=== PATIENT | female | born 1950 | race Caucasian/White ===

== ENCOUNTER 2022-12-22 17:14 | Inpatient (IN) | payer MEDICARE, BC ==
[~2022-12-22] VITALS: Ht 165.1 cm; Wt 105.2 kg
[2022-12-22 20:00] VITALS: BP 123/58
[2022-12-22] MEDS ORDERED: PANT40TA49 PO (22:17)
[2022-12-22] MEDS ORDERED: LEVO175T7 PO (22:17)
[2022-12-22] MEDS ORDERED: MIDO5TAB5 PO (22:17)
[2022-12-22] MEDS ORDERED: VIT1TABL46 PO (22:17)
[2022-12-22] MEDS ORDERED: LINA5TAB PO (22:17)
[2022-12-22] MEDS ORDERED: SENN-291 PO (22:17)
[2022-12-22] MEDS ORDERED: ALLO100T PO (22:21)
[2022-12-22] MEDS: REMEDY ESSENTIAL ZINC PASTE 113 GM TOP SCH (22:28)
[2022-12-22] MEDS ORDERED: SENNOSIDES/DOCUSATE SODIUM TABLET PO PRN (23:15)
[2022-12-23 04:00] VITALS: BP 119/62
[2022-12-23] MEDS: LEVOTHYROXINE SODIUM 175 MCG TABLET PO SCH (07:40)
[2022-12-23] MEDS: PANTOPRAZOLE SODIUM 40 MG TABLET.DR PO SCH (07:40)
[2022-12-23 07:56] VITALS: BP 100/33
[2022-12-23] MEDS: ALLOPURINOL 100 MG TABLET PO SCH (08:51)
[2022-12-23] MEDS: MULTIVITAMINS,THERAPEUTIC TABLET PO SCH (08:51)
[2022-12-23] MEDS: LINAGLIPTIN 5 MG TABLET PO SCH (08:51)
[2022-12-23] MEDS: REMEDY ESSENTIAL ZINC PASTE 113 GM TOP SCH ×2 (08:52→21:31)
[2022-12-23] MEDS: MIDODRINE HCL 5 MG TABLET PO SCH ×3 (08:52→17:39)
[2022-12-23] MEDS ORDERED: DEXTROSE 50% 50 ML DISP.SYRIN IV PRN (12:00)
[2022-12-23] MEDS ORDERED: BLOOD SUGAR DIAGNOSTIC 1 EACH STRIP VI SCH (12:00)
[2022-12-23 15:42] VITALS: BP 87/33
[2022-12-23 16:08] VITALS: BP 115/35
[2022-12-23] MEDS: BLOOD SUGAR DIAGNOSTIC 1 EACH STRIP VI SCH ×2 (16:30→21:29)
[2022-12-23] MEDS: PROTEIN SUPPLEMENT (PROSTAT) 30 ML LIQUID PO SCH (17:41)
[2022-12-23 20:38] VITALS: BP 109/36
[2022-12-23] MEDS: INSULIN REGULAR, HUMAN 300 UNIT/3 ML VIAL SQ PRN (21:30)
[2022-12-24] VITALS (13 sets, daily range): BP systolic 103–128; BP diastolic 32–49
[2022-12-24 06:21] LABS: MEAN CORPUSCULAR HEMOGLOBIN 33.5 uug (24.7-32.8); MEAN CORPUSCULAR VOLUME 99.6 fL (75.5-95.3); PLATELET COUNT (AUTO) 100 K/uL (179-408)
[2022-12-24 06:46] LABS: CARBON DIOXIDE 22 mmol/L (21-32); CHLORIDE 107 mmol/L (98-107); CREATININE 1.9 mg/dL (0.6-1.3); GLUCOSE 109 mg/dL (74-106); MAGNESIUM 1.7 mg/dL (1.8-2.4); PHOSPHOROUS 2.8 mg/dL (2.5-4.9); POTASSIUM 3.6 mmol/L (3.5-5.1); UREA NITROGEN, BLOOD 25 mg/dL (7-18)
[2022-12-24] MEDS: PANTOPRAZOLE SODIUM 40 MG TABLET.DR PO SCH (07:03)
[2022-12-24] MEDS: LEVOTHYROXINE SODIUM 175 MCG TABLET PO SCH (07:03)
[2022-12-24] MEDS: BLOOD SUGAR DIAGNOSTIC 1 EACH STRIP VI SCH ×4 (07:19→20:34)
[2022-12-24 07:48] LABS: HEMATOCRIT 17.5 % (31.2-41.9)
[2022-12-24] MEDS: ALLOPURINOL 100 MG TABLET PO SCH (08:06)
[2022-12-24] MEDS: MULTIVITAMINS,THERAPEUTIC TABLET PO SCH (08:07)
[2022-12-24] MEDS: MIDODRINE HCL 5 MG TABLET PO SCH ×3 (08:07→16:55)
[2022-12-24] MEDS: REMEDY ESSENTIAL ZINC PASTE 113 GM TOP SCH ×2 (08:07→20:33)
[2022-12-24] MEDS: LINAGLIPTIN 5 MG TABLET PO SCH (08:07)
[2022-12-24] MEDS: GLUCERNA SHAKE 237 ML CAN PO SCH (08:14)
[2022-12-24] MEDS: PROTEIN SUPPLEMENT (PROSTAT) 30 ML LIQUID PO SCH ×2 (08:15→16:56)
[2022-12-24] MEDS ORDERED: MAGNESIUM OXIDE 400 MG TABLET PO ONE (10:00)
[2022-12-24 10:30] LABS: BAND % (MANUAL) 6 % (0-10); BASOPHILS % (MANUAL) 0 % (0-2); EOSINOPHILS % (MANUAL) 0 % (0-8); LYMPHOCYTES % (MANUAL) 27 % (20-40); MONOCYTES % (MANUAL) 2 % (2-10); NEUTROPHILS % (MANUAL) 59 % (42-75); REACTIVE LYMPHOCYTES 5 % (0-0)
[2022-12-24 10:31] LABS: BLASTS, MANUAL % 0 % (0-0); METAMYELOCYTES % 1 % (0-1); MYELOCYTES % 0 % (0-0); PROMYELOCYTES % 0 %
[2022-12-24] MEDS: INSULIN REGULAR, HUMAN 300 UNIT/3 ML VIAL SQ PRN (11:43)
[2022-12-25 04:12] VITALS: BP 116/50
[2022-12-25 06:02] LABS: MEAN CORPUSCULAR HEMOGLOBIN 33.9 uug (24.7-32.8); MEAN CORPUSCULAR VOLUME 98.3 fL (75.5-95.3); PLATELET COUNT (AUTO) 82 K/uL (179-408)
[2022-12-25 06:08] LABS: CARBON DIOXIDE 22 mmol/L (21-32); CHLORIDE 106 mmol/L (98-107); CREATININE 1.9 mg/dL (0.6-1.3); GLUCOSE 111 mg/dL (74-106); MAGNESIUM 1.7 mg/dL (1.8-2.4); PHOSPHOROUS 2.9 mg/dL (2.5-4.9); POTASSIUM 3.8 mmol/L (3.5-5.1); UREA NITROGEN, BLOOD 28 mg/dL (7-18)
[2022-12-25 06:20] LABS: HEMATOCRIT 20.8 % (31.2-41.9)
[2022-12-25] MEDS: LEVOTHYROXINE SODIUM 175 MCG TABLET PO SCH (06:30)
[2022-12-25] MEDS: PANTOPRAZOLE SODIUM 40 MG TABLET.DR PO SCH (06:30)
[2022-12-25] MEDS: BLOOD SUGAR DIAGNOSTIC 1 EACH STRIP VI SCH ×4 (06:32→20:32)
[2022-12-25 08:00] VITALS: BP 120/37
[2022-12-25] MEDS: ALLOPURINOL 100 MG TABLET PO SCH (08:43)
[2022-12-25] MEDS: LINAGLIPTIN 5 MG TABLET PO SCH (08:43)
[2022-12-25] MEDS: MULTIVITAMINS,THERAPEUTIC TABLET PO SCH (08:43)
[2022-12-25] MEDS: GLUCERNA SHAKE 237 ML CAN PO SCH (08:46)
[2022-12-25] MEDS: MIDODRINE HCL 5 MG TABLET PO SCH ×3 (08:46→17:00)
[2022-12-25] MEDS: REMEDY ESSENTIAL ZINC PASTE 113 GM TOP SCH ×2 (08:47→20:28)
[2022-12-25] MEDS: PROTEIN SUPPLEMENT (PROSTAT) 30 ML LIQUID PO SCH ×2 (08:47→17:01)
[2022-12-25 10:32] LABS: BAND % (MANUAL) 3 % (0-10); LYMPHOCYTES % (MANUAL) 11 % (20-40)
[2022-12-25 10:33] LABS: BASOPHILS % (MANUAL) 0 % (0-2); EOSINOPHILS % (MANUAL) 3 % (0-8); METAMYELOCYTES % 0 % (0-1); MONOCYTES % (MANUAL) 5 % (2-10); MYELOCYTES % 0 % (0-0); PROMYELOCYTES % 0 %; REACTIVE LYMPHOCYTES 8 % (0-0)
[2022-12-25 10:34] LABS: NEUTROPHILS % (MANUAL) 70 % (42-75)
[2022-12-25] MEDS ORDERED: MAGNESIUM OXIDE 400 MG TABLET PO ONE (11:00)
[2022-12-25 11:53] LABS: IRON, SERUM 46 ug/dL (50-175)
[2022-12-25] MEDS: INSULIN REGULAR, HUMAN 300 UNIT/3 ML VIAL SQ PRN (11:56)
[2022-12-25 15:59] VITALS: BP 124/42
[2022-12-25 20:19] VITALS: BP 122/44
[2022-12-26] VITALS (8 sets, daily range): BP systolic 110–164; BP diastolic 28–52
[2022-12-26] MEDS: BLOOD SUGAR DIAGNOSTIC 1 EACH STRIP VI SCH ×4 (06:32→20:36)
[2022-12-26] MEDS: PANTOPRAZOLE SODIUM 40 MG TABLET.DR PO SCH ×2 (06:32→17:19)
[2022-12-26] MEDS: LEVOTHYROXINE SODIUM 175 MCG TABLET PO SCH (06:32)
[2022-12-26 07:35] LABS: CARBON DIOXIDE 21 mmol/L (21-32); CHLORIDE 108 mmol/L (98-107); GLUCOSE 114 mg/dL (74-106); MAGNESIUM 1.8 mg/dL (1.8-2.4); PHOSPHOROUS 3.1 mg/dL (2.5-4.9); UREA NITROGEN, BLOOD 32 mg/dL (7-18)
[2022-12-26 07:50] LABS: MEAN CORPUSCULAR HEMOGLOBIN 33.7 uug (24.7-32.8); MEAN CORPUSCULAR VOLUME 99.4 fL (75.5-95.3); PLATELET COUNT (AUTO) 95 K/uL (179-408)
[2022-12-26 08:11] LABS: HEMATOCRIT 18.4 % (31.2-41.9)
[2022-12-26 09:00] LABS: BAND % (MANUAL) 2 % (0-10); EOSINOPHILS % (MANUAL) 8 % (0-8); LYMPHOCYTES % (MANUAL) 8 % (20-40); MONOCYTES % (MANUAL) 2 % (2-10); MYELOCYTES % 2 % (0-0); NEUTROPHILS % (MANUAL) 78 % (42-75)
[2022-12-26] MEDS: PROTEIN SUPPLEMENT (PROSTAT) 30 ML LIQUID PO SCH ×2 (09:46→17:24)
[2022-12-26] MEDS: MULTIVITAMINS,THERAPEUTIC TABLET PO SCH (09:46)
[2022-12-26] MEDS: REMEDY ESSENTIAL ZINC PASTE 113 GM TOP SCH ×2 (09:46→20:37)
[2022-12-26] MEDS: ALLOPURINOL 100 MG TABLET PO SCH (09:47)
[2022-12-26] MEDS: LINAGLIPTIN 5 MG TABLET PO SCH (09:47)
[2022-12-26] MEDS: GLUCERNA SHAKE 237 ML CAN PO SCH (09:48)
[2022-12-26] MEDS: MIDODRINE HCL 5 MG TABLET PO SCH ×3 (09:48→17:23)
[2022-12-26] MEDS ORDERED: GOLYTELY 4000 ML BOTTLE PO ONE (11:45)
[2022-12-26] MEDS: INSULIN REGULAR, HUMAN 300 UNIT/3 ML VIAL SQ PRN (12:23)
[2022-12-26] MEDS: RIFAXIMIN 550 MG TABLET PO SCH ×2 (12:29→20:37)
[2022-12-26] MEDS: SOD FERRIC GLUC COMPLX/SUCROSE 125 MG in IV NORMAL SALINE 100 ML IV SCH (15:09)
[2022-12-27 05:02] VITALS: BP 120/44
[2022-12-27] MEDS: LEVOTHYROXINE SODIUM 175 MCG TABLET PO SCH (06:23)
[2022-12-27] MEDS: PANTOPRAZOLE SODIUM 40 MG TABLET.DR PO SCH ×2 (06:23→17:07)
[2022-12-27 06:27] LABS: HEMATOCRIT 21.8 % (31.2-41.9); MEAN CORPUSCULAR HEMOGLOBIN 33.3 uug (24.7-32.8); MEAN CORPUSCULAR VOLUME 98.8 fL (75.5-95.3); PLATELET COUNT (AUTO) 85 K/uL (179-408)
[2022-12-27] MEDS: BLOOD SUGAR DIAGNOSTIC 1 EACH STRIP VI SCH ×4 (06:45→21:47)
[2022-12-27 06:54] LABS: ALANINE AMINOTRANSFERASE 32 U/L (14-59); ALKALINE PHOSPHATASE 142 U/L (50-136); ASPARTATE AMINOTRANSFERASE 55 U/L (15-37); BILIRUBIN,TOTAL 1.3 mg/dL (0.2-1.0); CARBON DIOXIDE 23 mmol/L (21-32); CHLORIDE 106 mmol/L (98-107); CREATININE 1.9 mg/dL (0.6-1.3); GLUCOSE 114 mg/dL (74-106); MAGNESIUM 1.8 mg/dL (1.8-2.4); PHOSPHOROUS 2.9 mg/dL (2.5-4.9); POTASSIUM 3.8 mmol/L (3.5-5.1); TOTAL PROTEIN, SERUM 4.6 g/dL (6.4-8.2); UREA NITROGEN, BLOOD 32 mg/dL (7-18)
[2022-12-27 07:32] VITALS: BP 120/40
[2022-12-27] MEDS: RIFAXIMIN 550 MG TABLET PO SCH ×2 (08:26→20:27)
[2022-12-27] MEDS: ALLOPURINOL 100 MG TABLET PO SCH (08:26)
[2022-12-27] MEDS: LINAGLIPTIN 5 MG TABLET PO SCH (08:26)
[2022-12-27] MEDS: GLUCERNA SHAKE 237 ML CAN PO SCH (08:33)
[2022-12-27] MEDS: PROTEIN SUPPLEMENT (PROSTAT) 30 ML LIQUID PO SCH ×2 (08:33→17:08)
[2022-12-27] MEDS: MIDODRINE HCL 5 MG TABLET PO SCH ×3 (08:34→17:07)
[2022-12-27] MEDS: MULTIVITAMINS,THERAPEUTIC TABLET PO SCH (08:34)
[2022-12-27] MEDS: REMEDY ESSENTIAL ZINC PASTE 113 GM TOP SCH ×2 (08:34→20:27)
[2022-12-27 10:51] LABS: BAND % (MANUAL) 2 % (0-10); LYMPHOCYTES % (MANUAL) 9 % (20-40); MONOCYTES % (MANUAL) 12 % (2-10); NEUTROPHILS % (MANUAL) 77 % (42-75)
[2022-12-27] MEDS: INSULIN REGULAR, HUMAN 300 UNIT/3 ML VIAL SQ PRN (11:43)
[2022-12-27] MEDS: SOD FERRIC GLUC COMPLX/SUCROSE 125 MG in IV NORMAL SALINE 100 ML IV SCH (13:25)
[2022-12-27 16:00] VITALS: BP 126/46
[2022-12-27 19:58] VITALS: BP 112/44
[2022-12-28 04:20] VITALS: BP 100/38
[2022-12-28 05:23] LABS: HEMATOCRIT 22.6 % (31.2-41.9); MEAN CORPUSCULAR HEMOGLOBIN 33.8 uug (24.7-32.8); MEAN CORPUSCULAR VOLUME 100.2 fL (75.5-95.3); PLATELET COUNT (AUTO) 85 K/uL (179-408)
[2022-12-28 06:19] LABS: CARBON DIOXIDE 23 mmol/L (21-32); CHLORIDE 105 mmol/L (98-107); CREATININE 1.8 mg/dL (0.6-1.3); GLUCOSE 109 mg/dL (74-106); PHOSPHOROUS 3.4 mg/dL (2.5-4.9); POTASSIUM 3.7 mmol/L (3.5-5.1); UREA NITROGEN, BLOOD 32 mg/dL (7-18)
[2022-12-28] MEDS: PANTOPRAZOLE SODIUM 40 MG TABLET.DR PO SCH ×2 (06:23→17:24)
[2022-12-28] MEDS: LEVOTHYROXINE SODIUM 175 MCG TABLET PO SCH ×2 (06:23→08:23)
[2022-12-28] MEDS: BLOOD SUGAR DIAGNOSTIC 1 EACH STRIP VI SCH ×4 (06:30→21:17)
[2022-12-28 07:41] VITALS: BP 104/37
[2022-12-28] MEDS: MIDODRINE HCL 5 MG TABLET PO SCH ×3 (08:23→17:24)
[2022-12-28] MEDS: LINAGLIPTIN 5 MG TABLET PO SCH (08:23)
[2022-12-28] MEDS: ALLOPURINOL 100 MG TABLET PO SCH (08:23)
[2022-12-28] MEDS: MULTIVITAMINS,THERAPEUTIC TABLET PO SCH (08:23)
[2022-12-28] MEDS: REMEDY ESSENTIAL ZINC PASTE 113 GM TOP SCH ×2 (08:25→20:58)
[2022-12-28] MEDS: PROTEIN SUPPLEMENT (PROSTAT) 30 ML LIQUID PO SCH ×2 (08:25→17:27)
[2022-12-28] MEDS: GLUCERNA SHAKE 237 ML CAN PO SCH (08:26)
[2022-12-28] MEDS: RIFAXIMIN 550 MG TABLET PO SCH ×2 (08:57→20:58)
[2022-12-28] MEDS: INSULIN REGULAR, HUMAN 300 UNIT/3 ML VIAL SQ PRN (12:14)
[2022-12-28] MEDS: SOD FERRIC GLUC COMPLX/SUCROSE 125 MG in IV NORMAL SALINE 100 ML IV SCH (14:11)
[2022-12-28 16:00] VITALS: BP 134/51
[2022-12-28 20:06] VITALS: BP 130/37
[2022-12-29 05:43] VITALS: BP 121/40
[2022-12-29] MEDS: PANTOPRAZOLE SODIUM 40 MG TABLET.DR PO SCH ×2 (06:35→16:51)
[2022-12-29] MEDS: BLOOD SUGAR DIAGNOSTIC 1 EACH STRIP VI SCH ×2 (06:43→11:34)
[2022-12-29 06:47] LABS: HEMATOCRIT 22.6 % (31.2-41.9); MEAN CORPUSCULAR VOLUME 100.6 fL (75.5-95.3); PLATELET COUNT (AUTO) 110 K/uL (179-408)
[2022-12-29 07:07] LABS: THYROID STIMULATING HORMONE 6.794 mIU/mL (0.358-3.740)
[2022-12-29 07:26] LABS: CARBON DIOXIDE 22 mmol/L (21-32); CHLORIDE 105 mmol/L (98-107); CREATININE 1.8 mg/dL (0.6-1.3); GLUCOSE 114 mg/dL (74-106); MAGNESIUM 1.9 mg/dL (1.8-2.4); PHOSPHOROUS 3.4 mg/dL (2.5-4.9); POTASSIUM 3.7 mmol/L (3.5-5.1); UREA NITROGEN, BLOOD 32 mg/dL (7-18)
[2022-12-29 07:55] LABS: ALANINE AMINOTRANSFERASE 39 U/L (14-59); ALKALINE PHOSPHATASE 173 U/L (50-136); ASPARTATE AMINOTRANSFERASE 65 U/L (15-37); BILIRUBIN,TOTAL 0.9 mg/dL (0.2-1.0); CARBON DIOXIDE 23 mmol/L (21-32); CHLORIDE 105 mmol/L (98-107); CHOLESTEROL 124 mg/dL (<200); CREATININE 1.8 mg/dL (0.6-1.3); GLUCOSE 114 mg/dL (74-106); HDL CHOLESTEROL 24 mg/dL (40-60); POTASSIUM 3.7 mmol/L (3.5-5.1); TRIGLYCERIDES 87 MG/DL (30-150); UREA NITROGEN, BLOOD 32 mg/dL (7-18)
[2022-12-29 08:00] VITALS: BP 146/49
[2022-12-29 08:43] LABS: TOTAL PROTEIN, SERUM 4.9 g/dL (6.4-8.2)
[2022-12-29] MEDS: MULTIVITAMINS,THERAPEUTIC TABLET PO SCH (08:50)
[2022-12-29] MEDS: LEVOTHYROXINE SODIUM 175 MCG TABLET PO SCH (08:50)
[2022-12-29] MEDS: LINAGLIPTIN 5 MG TABLET PO SCH (08:51)
[2022-12-29] MEDS: ALLOPURINOL 100 MG TABLET PO SCH (08:51)
[2022-12-29] MEDS: RIFAXIMIN 550 MG TABLET PO SCH ×2 (08:52→20:14)
[2022-12-29] MEDS: MIDODRINE HCL 5 MG TABLET PO SCH (08:53)
[2022-12-29] MEDS: REMEDY ESSENTIAL ZINC PASTE 113 GM TOP SCH ×2 (08:54→20:14)
[2022-12-29] MEDS: PROTEIN SUPPLEMENT (PROSTAT) 30 ML LIQUID PO SCH ×2 (08:54→16:52)
[2022-12-29] MEDS: GLUCERNA SHAKE 237 ML CAN PO SCH (08:54)
[2022-12-29] MEDS: INSULIN REGULAR, HUMAN 300 UNIT/3 ML VIAL SQ PRN (11:36)
[2022-12-29] MEDS: SOD FERRIC GLUC COMPLX/SUCROSE 125 MG in IV NORMAL SALINE 100 ML IV SCH (14:06)
[2022-12-29 16:00] VITALS: BP 151/56
[2022-12-29 20:00] VITALS: BP 117/55
[2022-12-30 04:41] VITALS: BP 110/61
[2022-12-30] MEDS: PANTOPRAZOLE SODIUM 40 MG TABLET.DR PO SCH ×2 (05:49→17:04)
[2022-12-30] MEDS: LEVOTHYROXINE SODIUM 175 MCG TABLET PO SCH (05:49)
[2022-12-30 06:54] LABS: HEMATOCRIT 21.9 % (31.2-41.9); MEAN CORPUSCULAR HEMOGLOBIN 34.1 uug (24.7-32.8); MEAN CORPUSCULAR VOLUME 101.6 fL (75.5-95.3); PLATELET COUNT (AUTO) 107 K/uL (179-408)
[2022-12-30 07:33] LABS: CARBON DIOXIDE 25 mmol/L (21-32); CHLORIDE 105 mmol/L (98-107); CREATININE 1.9 mg/dL (0.6-1.3); GLUCOSE 111 mg/dL (74-106); MAGNESIUM 1.9 mg/dL (1.8-2.4); PHOSPHOROUS 3.5 mg/dL (2.5-4.9); POTASSIUM 3.7 mmol/L (3.5-5.1); UREA NITROGEN, BLOOD 33 mg/dL (7-18)
[2022-12-30 08:06] VITALS: BP 165/50
[2022-12-30] MEDS: MULTIVITAMINS,THERAPEUTIC TABLET PO SCH (08:28)
[2022-12-30] MEDS: PROTEIN SUPPLEMENT (PROSTAT) 30 ML LIQUID PO SCH ×2 (08:29→17:06)
[2022-12-30] MEDS: LINAGLIPTIN 5 MG TABLET PO SCH (08:29)
[2022-12-30] MEDS: GLUCERNA SHAKE 237 ML CAN PO SCH (08:29)
[2022-12-30] MEDS: ALLOPURINOL 100 MG TABLET PO SCH (08:29)
[2022-12-30] MEDS: REMEDY ESSENTIAL ZINC PASTE 113 GM TOP SCH ×2 (08:29→20:42)
[2022-12-30] MEDS: RIFAXIMIN 550 MG TABLET PO SCH ×2 (08:30→20:43)
[2022-12-30 10:38] LABS: BAND % (MANUAL) 2 % (0-10); EOSINOPHILS % (MANUAL) 1 % (0-8); LYMPHOCYTES % (MANUAL) 10 % (20-40); MONOCYTES % (MANUAL) 14 % (2-10); NEUTROPHILS % (MANUAL) 73 % (42-75)
[2022-12-30 10:39] LABS: BASOPHILS % (MANUAL) 0 % (0-2); BLASTS, MANUAL % 0 % (0-0); METAMYELOCYTES % 0 % (0-1); MYELOCYTES % 0 % (0-0); PROMYELOCYTES % 0 %; REACTIVE LYMPHOCYTES 0 % (0-0)
[2022-12-30] MEDS: SOD FERRIC GLUC COMPLX/SUCROSE 125 MG in IV NORMAL SALINE 100 ML IV SCH (14:10)
[2022-12-30 15:48] VITALS: BP 107/59
[2022-12-30 20:00] VITALS: BP 105/53
[2022-12-31 04:00] VITALS: BP 107/44
[2022-12-31] MEDS: LEVOTHYROXINE SODIUM 175 MCG TABLET PO SCH (06:08)
[2022-12-31] MEDS: PANTOPRAZOLE SODIUM 40 MG TABLET.DR PO SCH ×2 (06:08→17:00)
[2022-12-31 08:07] VITALS: BP 114/48
[2022-12-31] MEDS: ALLOPURINOL 100 MG TABLET PO SCH (09:14)
[2022-12-31] MEDS: GLUCERNA SHAKE 237 ML CAN PO SCH (09:14)
[2022-12-31] MEDS: MULTIVITAMINS,THERAPEUTIC TABLET PO SCH (09:14)
[2022-12-31] MEDS: LINAGLIPTIN 5 MG TABLET PO SCH (09:14)
[2022-12-31] MEDS: RIFAXIMIN 550 MG TABLET PO SCH ×2 (09:14→21:14)
[2022-12-31] MEDS: PROTEIN SUPPLEMENT (PROSTAT) 30 ML LIQUID PO SCH ×2 (09:14→17:00)
[2022-12-31] MEDS: REMEDY ESSENTIAL ZINC PASTE 113 GM TOP SCH ×2 (09:15→21:14)
[2022-12-31 12:27] LABS: *BILIRUBIN,URIN NEGATIVE (NEGATIVE); *BLOOD, URINE 2+ (NEGATIVE); *CLARITY,URINE CLEAR (CLEAR); *COLOR,URINE YELLOW (YELLOW); *KETONES,URINE NEGATIVE (NEGATIVE); *UROBILINOGEN,URINE 0.2 E.U./dl (NORMAL); LEUKOCYTE ESTERASE ,URINE NEGATIVE (NEGATIVE); NITRITE, URINE NEGATIVE (NEGATIVE); PH,URINE 5.5 (5.0-8.0); UGLUCOSE NEGATIVE (NEGATIVE)
[2022-12-31 12:40] LABS: BACTERIA,URINE NONE SEEN /HPF (NONE SEEN); RBC,URINE 0-3 /HPF (0-3); WBC,URINE 0-3 /HPF (0-3)
[2022-12-31 12:41] LABS: CALCIUM CARBONATE CRYSTALS,UR NONE SEEN /HPF (NONE SEEN); CALCIUM OXALATE CRYSTALS,UR MANY /HPF (NONE SEEN); CALCIUM PHOSPHATE CRYSTALS,UR NONE SEEN /HPF (NONE SEEN); COARSE GRANULAR CASTS,URINE NONE SEEN /LPF; CYSTINE CRYSTALS,URINE NONE SEEN /HPF (NONE SEEN); FATTY CASTS,URINE NONE SEEN /LPF (NONE SEEN); RED BLOOD CELL CASTS,URINE NONE SEEN /LPF (NONE SEEN); SQUAMOUS EPITHELIAL CELL,UR FEW /HPF (NONE SEEN); TRICHOMONAS,URINE NONE SEEN /HPF (NONE SEEN); TRIPLE PHOSPHATE CRYSTAL,UR NONE SEEN /HPF (NONE SEEN); TYROSINE CRYSTAL,URINE NONE SEEN /HPF (NONE SEEN); URIC ACID CRYSTALS,URINE NONE SEEN /HPF (NONE SEEN); URINE AMORPHOUS PHOSPHATES NONE SEEN /HPF; URINE AMORPHOUS URATE NONE SEEN /HPF; WAXY CASTS,URINE NONE SEEN /LPF (NONE SEEN); YEAST,URINE BUDDING YEAST /HPF (NONE SEEN)
[2022-12-31 12:42] LABS: MUCUS,URINE NONE SEEN /LPF (0-FEW); SPERM,URINE NONE SEEN /HPF (NONE SEEN)
[2022-12-31 15:50] VITALS: BP 111/46
[2022-12-31 20:32] VITALS: BP 109/39
[2023-01-01] VITALS (7 sets, daily range): BP systolic 98–115; BP diastolic 33–53
[2023-01-01] MEDS: LEVOTHYROXINE SODIUM 175 MCG TABLET PO SCH (06:26)
[2023-01-01] MEDS: PANTOPRAZOLE SODIUM 40 MG TABLET.DR PO SCH ×2 (06:26→17:06)
[2023-01-01 07:46] LABS: MEAN CORPUSCULAR HEMOGLOBIN 35.2 uug (24.7-32.8); MEAN CORPUSCULAR VOLUME 103.2 fL (75.5-95.3); PLATELET COUNT (AUTO) 111 K/uL (179-408)
[2023-01-01 08:22] LABS: HEMATOCRIT 18.3 % (31.2-41.9)
[2023-01-01] MEDS: LINAGLIPTIN 5 MG TABLET PO SCH (08:43)
[2023-01-01] MEDS: ALLOPURINOL 100 MG TABLET PO SCH (08:43)
[2023-01-01] MEDS: RIFAXIMIN 550 MG TABLET PO SCH ×2 (08:43→21:46)
[2023-01-01] MEDS: PROTEIN SUPPLEMENT (PROSTAT) 30 ML LIQUID PO SCH ×2 (08:44→17:06)
[2023-01-01] MEDS: MULTIVITAMINS,THERAPEUTIC TABLET PO SCH (08:44)
[2023-01-01] MEDS: GLUCERNA SHAKE 237 ML CAN PO SCH (08:44)
[2023-01-01] MEDS: REMEDY ESSENTIAL ZINC PASTE 113 GM TOP SCH ×2 (08:45→21:46)
[2023-01-01 12:52] LABS: NEUTROPHILS % (MANUAL) 69 % (42-75)
[2023-01-01 12:53] LABS: BAND % (MANUAL) 7 % (0-10); BASOPHILS % (MANUAL) 0 % (0-2); BLASTS, MANUAL % 0 % (0-0); EOSINOPHILS % (MANUAL) 4 % (0-8); LYMPHOCYTES % (MANUAL) 11 % (20-40); METAMYELOCYTES % 0 % (0-1); MONOCYTES % (MANUAL) 6 % (2-10); MYELOCYTES % 0 % (0-0); PROMYELOCYTES % 0 %; REACTIVE LYMPHOCYTES 0 % (0-0)
[2023-01-02 04:25] VITALS: BP 116/48
[2023-01-02] MEDS: PANTOPRAZOLE SODIUM 40 MG TABLET.DR PO SCH ×2 (06:04→17:46)
[2023-01-02 08:00] VITALS: BP 115/44
[2023-01-02] MEDS: LEVOTHYROXINE SODIUM 175 MCG TABLET PO SCH (09:37)
[2023-01-02] MEDS: MULTIVITAMINS,THERAPEUTIC TABLET PO SCH (09:37)
[2023-01-02] MEDS: LINAGLIPTIN 5 MG TABLET PO SCH (09:37)
[2023-01-02] MEDS: ALLOPURINOL 100 MG TABLET PO SCH (09:37)
[2023-01-02] MEDS: GLUCERNA SHAKE 237 ML CAN PO SCH (09:38)
[2023-01-02] MEDS: REMEDY ESSENTIAL ZINC PASTE 113 GM TOP SCH ×2 (09:39→21:33)
[2023-01-02] MEDS: PROTEIN SUPPLEMENT (PROSTAT) 30 ML LIQUID PO SCH ×2 (09:39→17:46)
[2023-01-02] MEDS: RIFAXIMIN 550 MG TABLET PO SCH ×2 (11:21→21:33)
[2023-01-02] MEDS ORDERED: HYDROXYZINE PAMOATE 25 MG CAPSULE PO PRN (12:00)
[2023-01-02 15:35] VITALS: BP 106/48
[2023-01-02 20:00] VITALS: BP 105/43
[2023-01-03] MEDS ORDERED: PIPERACILLIN/TAZO 2.25 G in IV DEXTROSE 5% 50 ML IV SCH ×2
[2023-01-03] MEDS ORDERED: PIPERACILLIN/TAZOBACTAM/D5W 100 ML ONE (01:03)
[2023-01-03] MEDS: PIPERACILLIN/TAZO 2.25 G in IV DEXTROSE 5% 50 ML IV SCH ×2 (01:11→05:42)
[2023-01-03 04:00] VITALS: BP 108/42
[2023-01-03 06:49] LABS: HEMATOCRIT 22.4 % (31.2-41.9); MEAN CORPUSCULAR HEMOGLOBIN 35.9 uug (24.7-32.8); MEAN CORPUSCULAR VOLUME 103.4 fL (75.5-95.3); PLATELET COUNT (AUTO) 111 K/uL (179-408)
[2023-01-03 07:34] LABS: ALANINE AMINOTRANSFERASE 32 U/L (14-59); ALKALINE PHOSPHATASE 164 U/L (50-136); ASPARTATE AMINOTRANSFERASE 53 U/L (15-37); BILIRUBIN,TOTAL 0.7 mg/dL (0.2-1.0); CARBON DIOXIDE 23 mmol/L (21-32); CHLORIDE 108 mmol/L (98-107); CREATININE 2.3 mg/dL (0.6-1.3); GLUCOSE 111 mg/dL (74-106); PHOSPHOROUS 3.4 mg/dL (2.5-4.9); POTASSIUM 4.4 mmol/L (3.5-5.1); TOTAL PROTEIN, SERUM 4.9 g/dL (6.4-8.2); UREA NITROGEN, BLOOD 37 mg/dL (7-18)
[2023-01-03 08:00] VITALS: BP 102/44
[2023-01-03] MEDS: LINAGLIPTIN 5 MG TABLET PO SCH (08:56)
[2023-01-03] MEDS: ALLOPURINOL 100 MG TABLET PO SCH (08:56)
[2023-01-03] MEDS: MULTIVITAMINS,THERAPEUTIC TABLET PO SCH (08:56)
[2023-01-03] MEDS: LEVOTHYROXINE SODIUM 175 MCG TABLET PO SCH (08:56)
[2023-01-03] MEDS: PROTEIN SUPPLEMENT (PROSTAT) 30 ML LIQUID PO SCH ×2 (08:57→16:53)
[2023-01-03] MEDS: GLUCERNA SHAKE 237 ML CAN PO SCH (08:57)
[2023-01-03] MEDS: RIFAXIMIN 550 MG TABLET PO SCH ×2 (09:00→20:53)
[2023-01-03] MEDS: REMEDY ESSENTIAL ZINC PASTE 113 GM TOP SCH ×2 (09:02→20:53)
[2023-01-03] MEDS: PANTOPRAZOLE SODIUM 40 MG TABLET.DR PO SCH ×2 (09:02→16:52)
[2023-01-03] MEDS: PIPERACILLIN SODIUM/TAZOBACTAM 3.375 G in IV DEXTROSE 5% 100 ML IV SCH ×2 (12:18→23:11)
[2023-01-03 16:00] VITALS: BP 115/40
[2023-01-03 20:09] VITALS: BP 107/44
[2023-01-04 04:20] VITALS: BP 103/43
[2023-01-04] MEDS: LEVOTHYROXINE SODIUM 175 MCG TABLET PO SCH (05:59)
[2023-01-04] MEDS: PANTOPRAZOLE SODIUM 40 MG TABLET.DR PO SCH ×2 (05:59→16:57)
[2023-01-04 07:32] VITALS: BP 105/43
[2023-01-04] MEDS: MULTIVITAMINS,THERAPEUTIC TABLET PO SCH (08:25)
[2023-01-04] MEDS: RIFAXIMIN 550 MG TABLET PO SCH ×2 (08:25→20:54)
[2023-01-04] MEDS: GLUCERNA SHAKE 237 ML CAN PO SCH (08:25)
[2023-01-04] MEDS: LINAGLIPTIN 5 MG TABLET PO SCH (08:25)
[2023-01-04] MEDS: ALLOPURINOL 100 MG TABLET PO SCH (08:25)
[2023-01-04] MEDS: REMEDY ESSENTIAL ZINC PASTE 113 GM TOP SCH ×2 (08:26→20:54)
[2023-01-04] MEDS: PROTEIN SUPPLEMENT (PROSTAT) 30 ML LIQUID PO SCH ×2 (08:26→16:58)
[2023-01-04] MEDS: PIPERACILLIN SODIUM/TAZOBACTAM 3.375 G in IV DEXTROSE 5% 100 ML IV SCH ×2 (12:09→23:52)
[2023-01-04 15:53] VITALS: BP 158/79
[2023-01-04 20:00] VITALS: BP 112/45
[2023-01-05 04:00] VITALS: BP 105/37
[2023-01-05] MEDS: PANTOPRAZOLE SODIUM 40 MG TABLET.DR PO SCH ×2 (06:09→16:29)
[2023-01-05] MEDS: LEVOTHYROXINE SODIUM 175 MCG TABLET PO SCH (06:31)
[2023-01-05 07:08] LABS: CARBON DIOXIDE 25 mmol/L (21-32); CHLORIDE 107 mmol/L (98-107); CREATININE 2.3 mg/dL (0.6-1.3); GLUCOSE 98 mg/dL (74-106); POTASSIUM 3.9 mmol/L (3.5-5.1); UREA NITROGEN, BLOOD 34 mg/dL (7-18)
[2023-01-05 07:31] VITALS: BP 98/41
[2023-01-05] MEDS: GLUCERNA SHAKE 237 ML CAN PO SCH (08:50)
[2023-01-05] MEDS: LINAGLIPTIN 5 MG TABLET PO SCH (08:51)
[2023-01-05] MEDS: RIFAXIMIN 550 MG TABLET PO SCH ×2 (08:51→21:23)
[2023-01-05] MEDS: ALLOPURINOL 100 MG TABLET PO SCH (08:51)
[2023-01-05] MEDS: REMEDY ESSENTIAL ZINC PASTE 113 GM TOP SCH ×2 (08:51→21:22)
[2023-01-05] MEDS: MULTIVITAMINS,THERAPEUTIC TABLET PO SCH (08:51)
[2023-01-05] MEDS: PROTEIN SUPPLEMENT (PROSTAT) 30 ML LIQUID PO SCH ×2 (08:52→17:01)
[2023-01-05] MEDS: PIPERACILLIN SODIUM/TAZOBACTAM 3.375 G in IV DEXTROSE 5% 100 ML IV SCH (11:18)
[2023-01-05 16:47] VITALS: BP 118/43
[2023-01-05 20:26] VITALS: BP 150/43
[2023-01-06] MEDS: PIPERACILLIN SODIUM/TAZOBACTAM 3.375 G in IV DEXTROSE 5% 100 ML IV SCH ×3 (00:04→18:21)
[2023-01-06 05:32] VITALS: BP 123/43
[2023-01-06] MEDS: LEVOTHYROXINE SODIUM 175 MCG TABLET PO SCH (06:18)
[2023-01-06] MEDS: PANTOPRAZOLE SODIUM 40 MG TABLET.DR PO SCH ×2 (06:18→17:42)
[2023-01-06 08:00] VITALS: BP 106/73
[2023-01-06] MEDS: ALLOPURINOL 100 MG TABLET PO SCH (09:50)
[2023-01-06] MEDS: LINAGLIPTIN 5 MG TABLET PO SCH (09:50)
[2023-01-06] MEDS: MULTIVITAMINS,THERAPEUTIC TABLET PO SCH (09:50)
[2023-01-06] MEDS: RIFAXIMIN 550 MG TABLET PO SCH ×2 (09:50→21:13)
[2023-01-06] MEDS: GLUCERNA SHAKE 237 ML CAN PO SCH (09:51)
[2023-01-06] MEDS: PROTEIN SUPPLEMENT (PROSTAT) 30 ML LIQUID PO SCH ×2 (09:52→17:43)
[2023-01-06] MEDS: REMEDY ESSENTIAL ZINC PASTE 113 GM TOP SCH ×2 (09:53→21:26)
[2023-01-06 13:30] LABS: *BILIRUBIN,URIN NEGATIVE (NEGATIVE); *BLOOD, URINE NEGATIVE (NEGATIVE); *CLARITY,URINE CLEAR (CLEAR); *COLOR,URINE YELLOW (YELLOW); *KETONES,URINE NEGATIVE (NEGATIVE); *UROBILINOGEN,URINE 0.2 E.U./dl (NORMAL); LEUKOCYTE ESTERASE ,URINE NEGATIVE (NEGATIVE); NITRITE, URINE NEGATIVE (NEGATIVE); PH,URINE 5.5 (5.0-8.0); UGLUCOSE NEGATIVE (NEGATIVE)
[2023-01-06 13:35] LABS: *URINE TOTAL PROTEIN RANDOM 34.3 mg/dL (<150/24HR)
[2023-01-06 15:25] VITALS: BP 102/41
[2023-01-06 20:00] VITALS: BP_SYST 140; BP_SYST 150; BP_DIAS 45; BP_DIAS 48
[2023-01-07] VITALS (10 sets, daily range): BP systolic 99–129; BP diastolic 40–53
[2023-01-07] MEDS: PIPERACILLIN SODIUM/TAZOBACTAM 3.375 G in IV DEXTROSE 5% 100 ML IV SCH ×3 (01:01→17:05)
[2023-01-07] MEDS: PANTOPRAZOLE SODIUM 40 MG TABLET.DR PO SCH ×2 (06:18→17:05)
[2023-01-07 06:33] LABS: ALANINE AMINOTRANSFERASE 33 U/L (14-59); ALKALINE PHOSPHATASE 152 U/L (50-136); ASPARTATE AMINOTRANSFERASE 46 U/L (15-37); BILIRUBIN,TOTAL 0.7 mg/dL (0.2-1.0); CARBON DIOXIDE 24 mmol/L (21-32); CHLORIDE 108 mmol/L (98-107); CREATININE 2.5 mg/dL (0.6-1.3); GLUCOSE 110 mg/dL (74-106); MAGNESIUM 2.1 mg/dL (1.8-2.4); PHOSPHOROUS 3.7 mg/dL (2.5-4.9); POTASSIUM 3.8 mmol/L (3.5-5.1); TOTAL PROTEIN, SERUM 4.6 g/dL (6.4-8.2); UREA NITROGEN, BLOOD 37 mg/dL (7-18)
[2023-01-07 06:45] LABS: CREATINE KINASE, TOTAL < 7 U/L (26-192)
[2023-01-07 07:06] LABS: MEAN CORPUSCULAR HEMOGLOBIN 35.5 uug (24.7-32.8); MEAN CORPUSCULAR VOLUME 108.2 fL (75.5-95.3); PLATELET COUNT (AUTO) 95 K/uL (179-408)
[2023-01-07] MEDS: LEVOTHYROXINE SODIUM 175 MCG TABLET PO SCH (07:34)
[2023-01-07 07:49] LABS: HEMATOCRIT 20.3 % (31.2-41.9)
[2023-01-07] MEDS: MULTIVITAMINS,THERAPEUTIC TABLET PO SCH (08:54)
[2023-01-07] MEDS: LINAGLIPTIN 5 MG TABLET PO SCH (08:58)
[2023-01-07] MEDS: ALLOPURINOL 100 MG TABLET PO SCH (08:59)
[2023-01-07] MEDS: RIFAXIMIN 550 MG TABLET PO SCH ×2 (09:02→20:37)
[2023-01-07] MEDS: GLUCERNA SHAKE 237 ML CAN PO SCH (09:03)
[2023-01-07] MEDS: REMEDY ESSENTIAL ZINC PASTE 113 GM TOP SCH ×2 (09:03→20:38)
[2023-01-07] MEDS: PROTEIN SUPPLEMENT (PROSTAT) 30 ML LIQUID PO SCH ×2 (09:03→17:06)
[2023-01-07 17:58] LABS: EOSINOPHILS % (MANUAL) 6 % (0-8); LYMPHOCYTES % (MANUAL) 9 % (20-40); MONOCYTES % (MANUAL) 6 % (2-10); NEUTROPHILS % (MANUAL) 79 % (42-75)
[2023-01-07 18:56] LABS: *OCCULT BLOOD STOOL POSITIVE (NEGATIVE)
[2023-01-08] MEDS: PIPERACILLIN SODIUM/TAZOBACTAM 3.375 G in IV DEXTROSE 5% 100 ML IV SCH ×2 (00:50→09:08)
[2023-01-08 04:30] VITALS: BP 113/39
[2023-01-08] MEDS: PANTOPRAZOLE SODIUM 40 MG TABLET.DR PO SCH (06:19)
[2023-01-08] MEDS: LEVOTHYROXINE SODIUM 175 MCG TABLET PO SCH (06:33)
[2023-01-08 07:17] LABS: MEAN CORPUSCULAR HEMOGLOBIN 34.5 uug (24.7-32.8); MEAN CORPUSCULAR VOLUME 103.4 fL (75.5-95.3); PLATELET COUNT (AUTO) 91 K/uL (179-408)
[2023-01-08 07:32] VITALS: BP 100/45
[2023-01-08] MEDS: MULTIVITAMINS,THERAPEUTIC TABLET PO SCH (09:05)
[2023-01-08] MEDS: LINAGLIPTIN 5 MG TABLET PO SCH (09:05)
[2023-01-08] MEDS: RIFAXIMIN 550 MG TABLET PO SCH (09:05)
[2023-01-08] MEDS: REMEDY ESSENTIAL ZINC PASTE 113 GM TOP SCH (09:06)
[2023-01-08] MEDS: GLUCERNA SHAKE 237 ML CAN PO SCH (09:07)
[2023-01-08] MEDS: PROTEIN SUPPLEMENT (PROSTAT) 30 ML LIQUID PO SCH (09:07)
[2023-01-08] MEDS: ALLOPURINOL 100 MG TABLET PO SCH (10:09)
[2023-01-08 12:20] LABS: BAND % (MANUAL) 5 % (0-10); BASOPHILS % (MANUAL) 0 % (0-2); BLASTS, MANUAL % 0 % (0-0); EOSINOPHILS % (MANUAL) 3 % (0-8); LYMPHOCYTES % (MANUAL) 13 % (20-40); METAMYELOCYTES % 0 % (0-1); MONOCYTES % (MANUAL) 13 % (2-10); MYELOCYTES % 0 % (0-0); NEUTROPHILS % (MANUAL) 62 % (42-75); PROMYELOCYTES % 0 %; REACTIVE LYMPHOCYTES 4 % (0-0)
[2023-01-10 13:07] LABS: A/G RATIO 0.9 (0.7-1.7); ALBUMIN 1.9 g/dL (2.9-4.4); ALPHA-1-GLOBULIN 0.3 g/dL (0.0-0.4); ALPHA-2-GLOBULIN 0.4 g/dL (0.4-1.0); BETA GLOBULIN 0.6 g/dL (0.7-1.3); GAMMA GLOBULIN 1.1 g/dL (0.4-1.8); GLOBULIN, TOTAL 2.2 g/dL (2.2-3.9); M-SPIKE Not Observed g/dL (Not Observed)
== END 2023-01-08 16:15 | DRG 689 ==
PROVIDERS: ADMIT Physical Medicine & Rehabilitation Pain Medicine; ATTEND Physical Medicine & Rehabilitation Pain Medicine
PROC: 05HY33Z Insertion of Infusion Device into Upper Vein, Percutaneous Approach (ICD-10-PCS; principal; 2022-12-24)
PROC: 30233N1 Transfusion of Nonautologous Red Blood Cells into Peripheral Vein, Percutaneous Approach (ICD-10-PCS; 2022-12-24)
DX: N39.0 Urinary tract infection, site not specified (principal); E43 Unspecified severe protein-calorie malnutrition; N17.0 Acute kidney failure with tubular necrosis; J69.0 Pneumonitis due to inhalation of food and vomit; G92.8 Other toxic encephalopathy; D68.59 Other primary thrombophilia; R18.8 Other ascites; R78.81 Bacteremia; K76.6 Portal hypertension; D53.9 Nutritional anemia, unspecified; E03.9 Hypothyroidism, unspecified; E11.9 Type 2 diabetes mellitus without complications; K74.69 Other cirrhosis of liver; K76.82 Hepatic encephalopathy; K31.89 Other diseases of stomach and duodenum; Z74.01 Bed confinement status; F06.4 Anxiety disorder due to known physiological condition; B96.20 Unspecified Escherichia coli [E. coli] as the cause of diseases classified elsewhere; D63.8 Anemia in other chronic diseases classified elsewhere; D69.6 Thrombocytopenia, unspecified; E88.09 Other disorders of plasma-protein metabolism, not elsewhere classified; Z68.36 Body mass index [BMI] 36.0-36.9, adult
CPT/HCPCS: 36415; 70030-TC; 71045; 83550; 83735; 83970; 84100; 84155; 84165; 84300; 84443; 85025; 85610; 86803; 86850; 86900; 86901; 86920; 87806; 97535-GO-CO; A4663; A6209; A6213; J1815; J2543; J2916; J7040; J8499; P9016